=== PATIENT | male | born 1975 | race Caucasian/White ===

== ENCOUNTER 2017-10-10 04:01 | Emergency (ER) | payer SELFPAY ==
[~2017-10-10 04:01] MED LIST: LISI-556 PO; SULF1TAB38 PO
== END 2017-10-10 04:40 | disposition left against medical advice (07) ==
LOC: EDUNIT# 04:01 → ER 04:04
DX: R19.7 Diarrhea, unspecified (principal); E83.42 Hypomagnesemia; N39.9 Disorder of urinary system, unspecified

== ENCOUNTER 2019-05-24 01:25 | Emergency (ER) | payer SELFPAY ==
[~2019-05-24] VITALS: Ht 172.7 cm; Wt 88.5 kg
[2019-05-24 02:25] VITALS: BP 151/90
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
--- NOTE | 2019-05-24 06:18 | Diagnostic Imaging Report ---
PA and lateral chest at 206 hours. INDICATION: Chest wall pain. There are no prior studies available for comparison. FINDINGS: The heart size is within normal limits. The lungs are clear. There is no evidence for failure, pneumonia or for pleural effusion. The mediastinum is not widened. The osseous structures are intact. The PA view does suggest a mild compression deformity of T9. I suspect this is chronic in nature. IMPRESSION: There is no evidence for an acute cardiopulmonary abnormality. Dictated by: Dictated on workstation # [id number]
[2019-05-25] MEDS ORDERED: CEPH-507 PO (01:47)
== END 2019-05-24 02:27 | disposition home or self-care (01) ==
LOC: EDUNIT# 01:25 → ER 01:28
DX: R07.89 Other chest pain (principal); I10 Essential (primary) hypertension; F41.9 Anxiety disorder, unspecified; F32.9 Major depressive disorder, single episode, unspecified; F17.290 Nicotine dependence, other tobacco product, uncomplicated; Y35.891A Legal intervention involving other specified means, law enforcement official injured, initial encounter
CPT/HCPCS: 71046

== ENCOUNTER 2019-05-24 22:50 | Emergency (ER) | payer SELFPAY ==
[~2019-05-24] VITALS: Ht 172.7 cm; Wt 88.5 kg
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
--- NOTE | 2019-05-24 23:18 | NUR ---
EKG BY ME
[2019-05-24] MEDS ORDERED: KETOROLAC 30 MG/ML VIAL IVP ONE (23:45)
--- NOTE | 2019-05-24 23:52 | NUR ---
LABS AND UA TO LAB BY ME
[2019-05-24 23:58] LABS: BASOPHILS % (AUTO) 0 % (0-10); EOSINOPHILS # (AUTO) 0.1 10^3/uL (0.0-0.3); EOSINOPHILS % (AUTO) 0 % (0-10); HEMATOCRIT 41 % (40-54); HEMOGLOBIN 13.8 G/DL (13.3-17.7); LYMPHOCYTES # (AUTO) 1.9 X 10^3 (1.0-4.0); LYMPHOCYTES % (AUTO) 14 % (12-44); MEAN CORPUSCULAR HEMOGLOBIN 30 PG (25-34); MEAN CORPUSCULAR HGB CONC 34 G/DL (32-36); MEAN CORPUSCULAR VOLUME 90 FL (80-99); MEAN PLATELET VOLUME 9.8 FL (7.4-10.4); MONOCYTES # (AUTO) 1.7 X 10^3 (0.0-1.0); MONOCYTES % (AUTO) 12 % (0-12); NEUTROPHILS # (AUTO) 10.2 X 10^3 (1.8-7.8); NEUTROPHILS % (AUTO) 74 % (42-75); PLATELET COUNT 375 10^3/uL (130-400); RED CELL DISTRIBUTION WIDTH 12.8 % (10.0-14.5); WHITE BLOOD COUNT 13.8 10^3/uL (4.3-11.0)
[2019-05-25 00:05] LABS: BILIRUBIN,URINE NEGATIVE (NEGATIVE); GLUCOSE, URINE (UA) NEGATIVE (NEGATIVE); KETONES,URINE NEGATIVE (NEGATIVE); LEUKOCYTE ESTERASE ,URINE NEGATIVE (NEGATIVE); NITRITE,URINE NEGATIVE (NEGATIVE); PH,URINE 7 (5-9); PROTEIN,URINE NEGATIVE (NEGATIVE); UROBILINOGEN,URINE NORMAL (NORMAL)
[2019-05-25 00:08] LABS: BACTERIA,URINE TRACE /HPF; CLARITY,URINE CLEAR; COLOR,URINE YELLOW; SQUAMOUS EPITHELIAL CELL,UR RARE /HPF
[2019-05-25 00:17] LABS: ALANINE AMINOTRANSFERASE 32 U/L (0-55); ALBUMIN 4.4 GM/DL (3.2-4.5); ALKALINE PHOSPHATASE 69 U/L (40-136); BILIRUBIN,TOTAL 0.7 MG/DL (0.1-1.0); BUN/CREATININE RATIO 13; CALCIUM 9.7 MG/DL (8.5-10.1); CARBON DIOXIDE 24 MMOL/L (21-32); CHLORIDE 98 MMOL/L (98-107); GFR ESTIMATED > 60; GLUCOSE 82 MG/DL (70-105); MAGNESIUM 1.8 MG/DL (1.8-2.4); POTASSIUM 3.8 MMOL/L (3.6-5.0); SODIUM 137 MMOL/L (135-145); TOTAL PROTEIN 7.1 GM/DL (6.4-8.2)
[2019-05-25 00:18] LABS: PROTHROMBIN TIME PATIENT 13.1 SEC (12.2-14.7)
[2019-05-25 00:34] VITALS: BP 146/80
--- NOTE | 2019-05-25 00:35 | NUR ---
PT BACK FROM CT. PT REMAINS HERE BY SELF ALERT GCS 15. CHEST PAIN LESS RATING 3. STILL C/O DYSPNEA AND NO ACUTE SIGHNS OF DYSPNEA NOTED. H/T REMAIN WNL. TELE SHOWS SR 92.
[2019-05-25] MEDS ORDERED: HOLD METFORMIN - RECEIVED CONTRAST 20 ML VIAL IV SCH (00:45)
[2019-05-25] MEDS ORDERED: IOHEXOL 350 MG/ML 150 ML (OMNIPAQUE 350) VIAL IV ONE (00:45)
[2019-05-25] MEDS ORDERED: NS 100 ML (IVPB) BAG IV ONE (00:45)
--- NOTE | 2019-05-25 00:49 | NUR ---
SAID BLOOD CXS AND ZOSYN. NOT ORDERED YET. I SENT BLOOD CXS TO LAB.
--- NOTE | 2019-05-25 00:52 | NUR ---
I CALLED LAB FOR 2ND BLOOD CXS.
[2019-05-25] MEDS ORDERED: NS IV 1000 ML 1,000 ML IV ONE (00:59)
[2019-05-25] MEDS ORDERED: ACETAMINOPHEN 500 MG TAB (TYLENOL) PO ONE (01:00)
--- NOTE | 2019-05-25 01:02 | NUR ---
REPORT TO GABO REYNA. HE KNOWS DR ORDERING BLOOD CXS, ZOSYN, AND TYLENOL.
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
[2019-05-25] MEDS ORDERED: CEPH-507 PO (01:47)
[2019-05-25 02:11] VITALS: BP 136/81
--- NOTE | 2019-05-25 06:56 | Diagnostic Imaging Report ---
PROCEDURE: CT angiography of the chest with contrast. TECHNIQUE: Multiple contiguous axial images were obtained through the chest after uneventful bolus administration of intravenous contrast. 2D reconstructed CTA MIP acquisitions were also performed. Auto Exposure Controls were utilized during the CT exam to meet ALARA standards for radiation dose reduction. INDICATION: Chest pain, fever and difficulty breathing. FINDINGS: There are no primary nodules, masses, or infiltrates. There is no pleural or pericardial fluid. There is no pneumothorax. There is no pathologically enlarged adenopathy in the chest. The thoracic aorta is normal in caliber and without evidence of dissection. There are no filling defects seen within the pulmonary arteries to suggest a pulmonary embolism. The visualized intraabdominal structures are unremarkable. The osseous structures are unremarkable. IMPRESSION: No acute abnormality in the chest. Specifically, there is no evidence of a pulmonary embolism or aortic dissection. Dictated by: Dictated on workstation # [id number]
== END 2019-05-25 02:11 | disposition home or self-care (01) ==
LOC: EDUNIT# 22:50 → ER 22:52
DX: R07.89 Other chest pain (principal); R50.9 Fever, unspecified; I10 Essential (primary) hypertension; F41.9 Anxiety disorder, unspecified; F32.9 Major depressive disorder, single episode, unspecified; Z77.22 Contact with and (suspected) exposure to environmental tobacco smoke (acute) (chronic)
CPT/HCPCS: 36415; 71275; 80053; 81000; 83605; 83735; 83874; 84484; 85025; 85610; 85730; 86141; 87040; 87077; 87186; 93005; 93041; 96374

== ENCOUNTER 2019-05-26 10:44 | Inpatient (IN) | payer OTHER ==
[~2019-05-26] VITALS: Ht 170.2 cm; Wt 87.3 kg
[~2019-05-26 10:44] MED LIST changes: +CEPH-507 PO
--- NOTE | 2019-05-26 10:55 | ED Chest Pain ---
General Stated Complaint: CHEST PAIN Source: patient Exam Limitations: no limitations History of Present Illness Date Seen by Provider: May 26, 2019 Time Seen by Provider: 10:50 Initial Comments To ER per EMS with reports of chest pain and upper back pain. This is worse with movement and deep breathing. It began on of last week when he was tased. [place] [employer] arrived to his house today to pick him up and taken to penitentiary on a notable on warrant when he started complaining of chest pain again. EMS reports she was able to walk to their cot, upon EMS arrival he is unable to transfer from the cot to the bed due to the severe chest pain. He's been seen here twice in the past 2 days for same complaint with a negative CT angio chest and negative troponin Timing/Duration: 3-4 days Severity/Quality: sharp Location: central, back Activities at Onset: none ASA po TRAINING AND DEVELOPMENT PROFESSIONAL: No NTG SL TRAINING AND DEVELOPMENT PROFESSIONAL: No Allergies and Home Medications Allergies Coded Allergies: No Known Drug Allergies (Unverified , 04/29/10) Home Medications Cephalexin 500 Mg Capsule, 500 MG PO QID Prescribed by: NAOMI MONTAGUE on 05/25/19 0147 Patient Home Medication List Home Medication List Reviewed: Yes Review of Systems Review of Systems Constitutional: see HPI EENTM: No Symptoms Reported Respiratory: No Symptoms Reported Cardiovascular: See HPI, Chest Pain Gastrointestinal: No Symptoms Reported Genitourinary: No Symptoms Reported Musculoskeletal: see HPI, back pain Skin: no symptoms reported Psychiatric/Neurological: No Symptoms Reported Endocrine: No Symptoms Reported Past Junkmmu-Tyjurt-Bkxlym Hx Patient Social History Type Used: Electronic/Vapor 2nd Hand Smoke Exposure: Yes Recent Hopitalizations: No Immunizations Up To Date Tetanus Booster (TDap): Unknown Seasonal Allergies Seasonal Allergies: No Past Medical History Surgeries: No Respiratory: No Cardiac: Yes Hypertension Neurological: No Genitourinary: No Gastrointestinal: No Musculoskeletal: No Endocrine: No HEENT: No Cancer: No Psychosocial: Yes Anxiety, Depression Integumentary: No Blood Disorders: No Physical Exam Vital Signs Vital Signs - First Documented 05/26/19 10:44 Temp 99.9 Pulse 68 Resp 18 B/P (MAP) 146/81 (102) Pulse Ox 98 O2 Delivery Room Air Capillary Refill : Height, Weight, BMI Height: 5'8.00" Weight: 195lbs. oz. 88.452564zd; 29.75 BMI Method:Stated General Appearance: No Apparent Distress, WD/WN, Other (keeps eyes closed when talking to us) HEENT: PERRL/EOMI, TMs Normal Respiratory: No Accessory Muscle Use, No Respiratory Distress, Other (chest is tender to palpation) Cardiovascular: Regular Rate, Rhythm, Normal Peripheral Pulses Gastrointestinal: Non Tender, Soft Neurologic/Psychiatric: Alert, Oriented x3 Skin: Normal Color, Warm/Dry Other comments EKG shows normal sinus rhythm without ST segment changes to suggest ischemia or pericarditis Focused Exam Lactate Level 05/26/19 11:31: Lactic Acid Level 0.78 Lactic Acid Level Laboratory Tests Test 05/26/19 11:31 Lactic Acid Level 0.78 MMOL/L (0.50-2.00) Progress/Results/Core Measures Results/Orders Lab Results Laboratory Tests Test 05/26/19 10:52 05/26/19 11:31 Range/Units White Blood Count 16.1 H 4.3-11.0 10^3/uL Red Blood Count 4.41 4.35-5.85 10^6/uL Hemoglobin 13.5 13.3-17.7 G/DL Hematocrit 40 40-54 % Mean Corpuscular Volume 90 80-99 FL Mean Corpuscular Hemoglobin 31 25-34 PG Mean Corpuscular Hemoglobin Concent 34 32-36 G/DL Red Cell Distribution Width 13.0 10.0-14.5 % Platelet Count 323 130-400 10^3/uL Mean Platelet Volume 9.7 7.4-10.4 FL Neutrophils (%) (Auto) 79 H 42-75 % Lymphocytes (%) (Auto) 11 L 12-44 % Monocytes (%) (Auto) 10 0-12 % Eosinophils (%) (Auto) 0 0-10 % Basophils (%) (Auto) 0 0-10 % Neutrophils # (Auto) 12.6 H 1.8-7.8 X 10^3 Lymphocytes # (Auto) 1.8 1.0-4.0 X 10^3 Monocytes # (Auto) 1.6 H 0.0-1.0 X 10^3 Eosinophils # (Auto) 0.0 0.0-0.3 10^3/uL Basophils # (Auto) 0.0 0.0-0.1 10^3/uL Neutrophils % (Manual) 7 % Lymphocytes % (Manual) 15 % Monocytes % (Manual) 9 % Band Neutrophils 5 % Blood Morphology Comment NORMAL Prothrombin Time 14.3 12.2-14.7 SEC INR Comment 1.1 0.8-1.4 Activated Partial Thromboplast Time 28 24-35 SEC D-Dimer 0.47 0.00-0.49 UG/ML Sodium Level 136 135-145 MMOL/L Potassium Level 4.1 3.6-5.0 MMOL/L Chloride Level 103 98-107 MMOL/L Carbon Dioxide Level 25 21-32 MMOL/L Anion Gap 8 5-14 MMOL/L Blood Urea Nitrogen 9 7-18 MG/DL Creatinine 0.85 0.60-1.30 MG/DL Estimat Glomerular Filtration Rate > 60 BUN/Creatinine Ratio 11 Glucose Level 140 H 70-105 MG/DL Calcium Level 9.1 8.5-10.1 MG/DL Corrected Calcium 9.4 8.5-10.1 MG/DL Magnesium Level 1.8 1.8-2.4 MG/DL Total Bilirubin 0.4 0.1-1.0 MG/DL Aspartate Amino Transf (AST/SGOT) 15 5-34 U/L Alanine Aminotransferase (ALT/SGPT) 30 0-55 U/L Alkaline Phosphatase 59 40-136 U/L Myoglobin 22.0 10.0-92.0 NG/ML Troponin I < 0.028 <0.028 NG/ML Total Protein 6.3 L 6.4-8.2 GM/DL Albumin 3.6 3.2-4.5 GM/DL Lactic Acid Level 0.78 0.50-2.00 MMOL/L My Orders Orders - JAVY JIMENEZ APRN Cbc With Automated Diff (05/26/19 10:46) Magnesium (05/26/19 10:46) Chest 1 View, Ap/Pa Only (05/26/19 10:46) Ekg Tracing (05/26/19 10:46) Cardiac Profile 1 (05/26/19 10:46) Comprehensive Metabolic Panel (05/26/19 10:46) Myoglobin Serum (05/26/19 10:46) Protime With Inr (05/26/19 10:46) Partial Thromboplastin Time (05/26/19 10:46) O2 (05/26/19 10:46) Monitor-Rhythm Ecg Trace Only (05/26/19 10:46) Ed Iv/Invasive Line Start (05/26/19 10:46) Fibrin Degradation Products (05/26/19 10:46) Ketorolac Injection (Toradol Injection) (05/26/19 11:00) Methocarbamol Tablet (Robaxin Tablet) (05/26/19 11:00) Manual Differential (05/26/19 10:52) Blood Culture (05/26/19 11:19) Lactic Acid Analyzer (05/26/19 11:19) Piperacillin/Tazobactam (Bulk) (Zosyn In (05/26/19 11:30) Ua Culture If Indicated (05/26/19 11:24) Drug Screen Stat (Urine) (05/26/19 11:43) Medications Given in ED Current Medications Medications Dose Ordered Sig/Shireen Route Start Time Stop Time Status Last Admin Dose Admin Ketorolac Tromethamine 15 mg ONCE ONCE IVP 05/26/19 11:00 05/26/19 11:01 DC 05/26/19 11:13 15 MG Piperacillin Sod/ Tazobactam Sod 4.5 gm/Sodium Chloride 120 ml @ 240 mls/hr ONCE ONCE IV 05/26/19 11:30 05/26/19 11:59 DC 05/26/19 11:48 240 MLS/HR Vital Signs/I&O 05/26/19 10:44 Temp 99.9 Pulse 68 Resp 18 B/P (MAP) 146/81 (102) Pulse Ox 98 O2 Delivery Room Air Progress Progress Note : Progress Note NAME: RUFUS MADRIGAL [facility] REC#: [id number] PT STATUS: REG ER : 1975 PHYSICIAN: JAVY JIMENEZ APRN ADMIT DATE: 05/26/19/ER Draft Date of Exam:05/26/19 CHEST 1 VIEW, AP/PA ONLY Clinical indication: Patient with chest pain. Exam: Portable chest x-ray upright view. Comparisons: Chest x-ray dated 05/24/2019. Findings: There is mild bibasilar atelectasis. There is no interval lung infiltrate. There is no pleural effusion or pneumothorax. Pulmonary vasculature and cardiac silhouette is within normal limits for portable projection. There are mildly hypertrophic spurs involving the thoracic spine. Impression: Mild bibasilar atelectasis. Otherwise, there is no radiographic evidence of acute cardiopulmonary process. Dictated on workstation # [id number] Dict: 05/26/19 1108 Trans: 05/26/19 1116 [facility] [id number] Interpreted by: KENIA QUIROGA MD Electronically signed by: Departure Communication (Admissions) Time/Spoke to Admitting Phy: 11:32 Was formerly a patient of Dr. Ferreira, has not followed there in over 2 years. He'll go to the hospitalist service. Spoke with Dr. Rossi, we will admit on Zosyn During the patient's stay here or the microbiology department haven't called to report that all 4 of his blood cultures from 2 days ago are positive for coag negative staph. The police will keep him in custody during stay. Impression Primary Impression: Coag negative Staphylococcus bacteremia Additional Impression: Chest wall pain Disposition: ADMITTED INPATIENT Condition: Stable Admissions Decision to Admit Reason: Admit from ER (General) Decision to Admit/Date: May 26, 2019 Time/Decision to Admit Time: 11:32 Departure-Patient Inst. Decision time for Depature: 10:54 Referrals: TIFFANY FERREIRA DO (PCP/Family) Primary Care Physician Add. Discharge Instructions: Follow-up with your doctor next week. Return if any concerns JAVY JIMENEZ APRN May 26, 2019 10:54
[2019-05-26 10:58] LABS: BASOPHILS % (AUTO) 0 % (0-10); EOSINOPHILS % (AUTO) 0 % (0-10); HEMATOCRIT 40 % (40-54); HEMOGLOBIN 13.5 G/DL (13.3-17.7); LYMPHOCYTES # (AUTO) 1.8 X 10^3 (1.0-4.0); LYMPHOCYTES % (AUTO) 11 % (12-44); MEAN CORPUSCULAR HEMOGLOBIN 31 PG (25-34); MEAN CORPUSCULAR HGB CONC 34 G/DL (32-36); MEAN CORPUSCULAR VOLUME 90 FL (80-99); MEAN PLATELET VOLUME 9.7 FL (7.4-10.4); MONOCYTES # (AUTO) 1.6 X 10^3 (0.0-1.0); MONOCYTES % (AUTO) 10 % (0-12); NEUTROPHILS # (AUTO) 12.6 X 10^3 (1.8-7.8); NEUTROPHILS % (AUTO) 79 % (42-75); PLATELET COUNT 323 10^3/uL (130-400); WHITE BLOOD COUNT 16.1 10^3/uL (4.3-11.0)
[2019-05-26] MEDS ORDERED: METHOCARBAMOL 750 MG (ROBAXIN) TAB PO ONE (11:00)
[2019-05-26] MEDS ORDERED: KETOROLAC 30 MG/ML VIAL IVP ONE (11:00)
[2019-05-26 11:08] LABS: INR 1.1 (0.8-1.4); PROTHROMBIN TIME PATIENT 14.3 SEC (12.2-14.7)
--- NOTE | 2019-05-26 11:16 | Diagnostic Imaging Report ---
Clinical indication: Patient with chest pain. Exam: Portable chest x-ray upright view. Comparisons: Chest x-ray dated 05/24/2019. Findings: There is mild bibasilar atelectasis. There is no interval lung infiltrate. There is no pleural effusion or pneumothorax. Pulmonary vasculature and cardiac silhouette is within normal limits for portable projection. There are mildly hypertrophic spurs involving the thoracic spine. Impression: Mild bibasilar atelectasis. Otherwise, there is no radiographic evidence of acute cardiopulmonary process. Dictated by: Dictated on workstation # [id number]
[2019-05-26 11:17] LABS: ALANINE AMINOTRANSFERASE 30 U/L (0-55); ALBUMIN 3.6 GM/DL (3.2-4.5); ALKALINE PHOSPHATASE 59 U/L (40-136); BILIRUBIN,TOTAL 0.4 MG/DL (0.1-1.0); BUN/CREATININE RATIO 11; CALCIUM 9.1 MG/DL (8.5-10.1); CARBON DIOXIDE 25 MMOL/L (21-32); CHLORIDE 103 MMOL/L (98-107); CREATININE SERUM 0.85 MG/DL (0.60-1.30); GFR ESTIMATED > 60; GLUCOSE 140 MG/DL (70-105); MAGNESIUM 1.8 MG/DL (1.8-2.4); POTASSIUM 4.1 MMOL/L (3.6-5.0); SODIUM 136 MMOL/L (135-145); TOTAL PROTEIN 6.3 GM/DL (6.4-8.2)
[2019-05-26] MEDS ORDERED: PIPERACILLIN/TAZOBACTAM (BULK) 4.5 GM in NS (IVPB) 100 ML IV ONE (11:30)
--- NOTE | 2019-05-26 11:31 | NUR ---
BLOOD CULTURE AND LATIC ACID DRAWN. LAB HERE TO DRAW 2ND SET OF CULTURE.
[2019-05-26 11:32] LABS: BAND NEUTROPHILS 5 %; LYMPHOCYTES % (MANUAL) 15 %; MONOCYTES % (MANUAL) 9 %; NEUTROPHILS % (MANUAL) 7 %
[2019-05-26 11:33] LABS: RBC MORPH NORMAL
--- NOTE | 2019-05-26 11:57 | NUR ---
REPORT GIVEN ROOM BEING CLEANED WILL CALL WHEN READY.
--- NOTE | 2019-05-26 12:30 | NUR ---
RUFUS MADRIGAL admitted to room 430-1, with an admitting diagnosis of sepsis and bacteremia, on 05/26/19 from ER via , accompanied by .RUFUS MADRIGAL introduced to surroundings, call light, bed controls, phone, TV, temperature control, lights, meal times, smoking policy, visitor policy, side rail policy, bathrooms and showers. Patient Rights given to patient in the handbook. RUFUS MADRIGAL verbalizes understanding that [facility] is not responsible for the loss or damage to any personal effects or valuables that are kept in the patients posession during their hospitalization. RUFUS MADRIGAL verbalizes understanding of Interdisciplinary Patient Education. Patient and/or family were informed about the Rapid Response Team and its purpose.
--- NOTE | 2019-05-26 12:40 | NUR ---
TO ROOM ACCOMPIED PER W/C ACCOMPIED BY PPD.
[2019-05-26 12:56] VITALS: BP 122/64
[2019-05-26 12:57] VITALS: BP 122/64
[2019-05-26] MEDS: ACETAMINOPHEN 325 MG TABLET PO PRN ×2 (13:13→23:23)
[2019-05-26] MEDS: LACTATED RINGERS 1,000 ML IV SCH ×3 (13:32→23:16)
--- NOTE | 2019-05-26 14:14 | NUR ---
Rechecked patient temperature at this time. 97.9
--- NOTE | 2019-05-26 14:30 | NUR ---
Patient in police custody while admitted to room 430. Right foot handcuffed to base of bed. Released at this time to ambulate to bathroom. Provided 200cc urine specimen. Ambulated back to bed and handcuff placed on left foot at this time.
[2019-05-26 15:23] LABS: BILIRUBIN,URINE NEGATIVE (NEGATIVE); CLARITY,URINE CLEAR; COLOR,URINE YELLOW; GLUCOSE, URINE (UA) NEGATIVE (NEGATIVE); KETONES,URINE NEGATIVE (NEGATIVE); LEUKOCYTE ESTERASE ,URINE NEGATIVE (NEGATIVE); NITRITE,URINE NEGATIVE (NEGATIVE); PH,URINE 6 (5-9); PROTEIN,URINE 1+ (NEGATIVE); UROBILINOGEN,URINE NORMAL (NORMAL)
--- NOTE | 2019-05-26 15:23 | NUR ---
Fr. Prashant Duncan arrived to visit the pt per request of pt's family. Fr. Cerda said the family told him about the pt's confidential status, and that the pt was in police custody. He requested this industrial trainer accompany him to the room due to pt's confidential status, and because the real estate asset manager was not in clerical attire and thus unrecognizable as a real estate asset manager by those unfamiliar with him. I accompanied Fr. Cerda to the pt's room where pt was resting with eyes closed. I introduced the real estate asset manager to the guard and asked if Fr. Cerda could visit the pt. He gave pass. The pt opened his eyes and became alert when the real estate asset manager touched his shoulder and spoke to him. This industrial trainer met with the nurse Felisha, requesting that she follow up with the real estate asset manager regarding the specific HIPPA regulations for confidential patients in the event that the family requests information from him.
[2019-05-26 15:36] LABS: BACTERIA,URINE TRACE /HPF
[2019-05-26 15:43] LABS: BARBITURATE SCREEN URINE NEGATIVE (NEGATIVE); OPIATE SCREEN URINE POSITIVE (NEGATIVE)
[2019-05-26 15:44] LABS: AMPHETAMINE SCREEN, URINE NEGATIVE (NEGATIVE); BENZODIAZEPINES SCREEN URINE NEGATIVE (NEGATIVE); CANNABINOID SCREEN, URINE NEGATIVE (NEGATIVE); COCAINE SCREEN URINE NEGATIVE (NEGATIVE); METHADONE STAT NEGATIVE (NEGATIVE); METHAMPHETAMINE SCREEN URINE S NEGATIVE (NEGATIVE); OXYCODONE STAT NEGATIVE (NEGATIVE); PROPOXYPHENE STAT NEGATIVE (NEGATIVE); TRICYCLIC ANTIDEPRESSANTS SCRE NEGATIVE (NEGATIVE)
[2019-05-26 16:00] VITALS: BP 129/74
[2019-05-26] MEDS: PIPERACILLIN/TAZO 4.5 GM/NS 100 ML IV SCH ×2 (17:21)
--- NOTE | 2019-05-26 17:46 | NUR ---
Patient in police custody while admitted to room 430. Left foot handcuffed to base of bed. Released at this time to ambulate to bathroom. Patient voided x1. Ambulated back to bed and handcuff placed on right foot at this time.
--- NOTE | 2019-05-26 18:35 | NUR ---
Offered patient the opportunity to get up and go to the bathroom or ambulate in room. Patient refused. Cuffs moved from right ankle to left ankle.
[2019-05-26 20:15] VITALS: BP 132/76
[2019-05-26 23:49] VITALS: BP 145/77
[2019-05-27] MEDS: PIPERACILLIN/TAZO 4.5 GM/NS 100 ML IV SCH ×6 (02:15→18:17)
[2019-05-27 03:44] VITALS: BP 133/77
[2019-05-27 05:47] LABS: BASOPHILS % (AUTO) 0 % (0-10); EOSINOPHILS # (AUTO) 0.1 10^3/uL (0.0-0.3); EOSINOPHILS % (AUTO) 1 % (0-10); HEMATOCRIT 39 % (40-54); HEMOGLOBIN 12.6 G/DL (13.3-17.7); LYMPHOCYTES # (AUTO) 1.6 X 10^3 (1.0-4.0); LYMPHOCYTES % (AUTO) 16 % (12-44); MEAN CORPUSCULAR HEMOGLOBIN 30 PG (25-34); MEAN CORPUSCULAR HGB CONC 33 G/DL (32-36); MEAN CORPUSCULAR VOLUME 91 FL (80-99); MEAN PLATELET VOLUME 9.8 FL (7.4-10.4); MONOCYTES # (AUTO) 1.4 X 10^3 (0.0-1.0); MONOCYTES % (AUTO) 13 % (0-12); NEUTROPHILS # (AUTO) 7.3 X 10^3 (1.8-7.8); NEUTROPHILS % (AUTO) 70 % (42-75); PLATELET COUNT 340 10^3/uL (130-400); WHITE BLOOD COUNT 10.5 10^3/uL (4.3-11.0)
[2019-05-27 06:03] LABS: ALANINE AMINOTRANSFERASE 26 U/L (0-55); ALBUMIN 3.2 GM/DL (3.2-4.5); ALKALINE PHOSPHATASE 57 U/L (40-136); BILIRUBIN,TOTAL 0.3 MG/DL (0.1-1.0); BUN/CREATININE RATIO 13; CALCIUM 9.1 MG/DL (8.5-10.1); CARBON DIOXIDE 25 MMOL/L (21-32); CHLORIDE 105 MMOL/L (98-107); CREATININE SERUM 1.01 MG/DL (0.60-1.30); GFR ESTIMATED > 60; GLUCOSE 135 MG/DL (70-105); SODIUM 141 MMOL/L (135-145); TOTAL PROTEIN 5.8 GM/DL (6.4-8.2)
[2019-05-27 08:00] VITALS: BP 137/74
[2019-05-27] MEDS ORDERED: VANCOMYCIN 2000 MG/NS 500 ML IVPB IV NR ×2 (09:00)
[2019-05-27] MEDS: LACTATED RINGERS 1,000 ML IV SCH ×3 (09:38→22:04)
--- NOTE | 2019-05-27 11:42 | History & Physical-Hospitalist ---
History of Present Illness HPI/Chief Complaint The patient is a 44-year-old white male who was admitted after he was brought there yesterday by the police. They had served him with an arrest warrant and he replied that he was ill and needed to go to the emergency room. This represented a third visit in 48 hours. On visit number 2 he had a low-grade fever and a modest elevation in white blood count at 13,800. He had been empirically given 1 dose of Zosyn IV and started on Keflex. On arrival he was found to have a temperature of 101 and a white count increased at 16,100. The blood culture that had been drawn the day prior was growing staph on 4 platelets. Initially I was told that it was quite negative staph however this morning Wanda Villa called and reported that it was indeed coag positive staph he is now afebrile and his white count from yesterday has fallen 16,100- 10,500. He continues to protest great pain. Source: patient Exam Limitations: no limitations Date Seen 05/27/19 Time Seen by a Provider: 11:36 Attending Physician Dalton Jaimes MD PCP Marina Ferreira DO Referring Physician Date of Admission May 26, 2019 at 11:47 am Home Medications & Allergies Home Medications Reviewed patient Home Medication Reconciliation performed by pharmacy medication reconciliations gastroenterology technician and/or nursing. Patients Allergies have been reviewed. Allergies Allergies Coded Allergies No Known Drug Allergies (Unverified04/29/10) Past Dtwxqlh-Qytvjc-Klntgk Hx Past Med/Social Hx: Reviewed Nursing Past Med/Soc Hx Patient Social History Alcohol Use: Denies Use Recreational Drug Use: No Smoking Status: Former Smoker Type Used: Electronic/Vapor 2nd Hand Smoke Exposure: Yes Recent Foreign Travel: No Contact w/other who traveled: No Recent Hopitalizations: No Recent Infectious Disease Expo: No Immunizations Up To Date Tetanus Booster (TDap): Unknown Seasonal Allergies Seasonal Allergies: No Past Medical History Cardiac: Hypertension Psychosocial: Anxiety, Depression History of Blood Disorders: No Family History Alcoholism Grandfather Cardiovascular disease 19 MOTHER Myocardial infarction 19 MOTHER Review of Systems Constitutional: see HPI Respiratory: no symptoms reported Cardiovascular: no symptoms reported Gastrointestinal: no symptoms reported Genitourinary: no symptoms reported Musculoskeletal: back pain Psychiatric/Neurological: No Symptoms Reported Physical Exam Physical Exam Vital Signs Vital Signs - First Documented 05/26/19 10:44 Temp 99.9 Pulse 68 Resp 18 B/P (MAP) 146/81 (102) Pulse Ox 98 O2 Delivery Room Air Capillary Refill : Less Than 3 SecondsLess Than 3 Seconds Height, Weight, BMI Height: 5'7.00" Weight: 192lbs. 9.0oz. 87.221876by; 30.2 BMI Method:Stated General Appearance: Mild Distress, Moderate Distress, Other (many complaints of pain with minimum movement.) HEENT: Normal ENT Inspection Neck: Full Range of Motion Respiratory: Chest Non Tender, Lungs Clear, Normal Breath Sounds, No Accessory Muscle Use, No Respiratory Distress Cardiovascular: Regular Rate, Rhythm, No Edema, No Gallop, No JVD, No Murmur, Normal Peripheral Pulses Gastrointestinal: Normal Bowel Sounds Neurologic/Psychiatric: Alert, Oriented x3 Comments There is a curious narrow triangular and deep defect about 8 mm in length over the mid dorsal aspect of the right foot. There is a more shallow abrasion type wound on the dorsum of the left foot. Both of these show no evidence of erythema or pus and appeared to be several days old Results Results/Procedures Labs Laboratory Tests 05/26/19 10:52 05/27/19 05:30 Patient resulted labs reviewed. Assessment/Plan Admission Diagnosis Bacteremia with Staphylococcus aureus Admission Status: Observation Clinical Quality Measures AMI/AHF: ASA po Prior to arrival: No DVT/VTE Risk/Contraindication: Risk Factor Score Per Nursin RFS Level Per Nursing on Admit: 4+=Very High DALTON JAIMES MD May 27, 2019 11:42 am
[2019-05-27 12:00] VITALS: BP 147/80
[2019-05-27 16:20] VITALS: BP 143/83
[2019-05-27 19:45] VITALS: BP 145/79
[2019-05-27] MEDS ORDERED: VANCOMYCIN 1500 MG/NS 500 ML IVPB IV SCH ×2 (21:00)
[2019-05-27] MEDS: IBUPROFEN 600 MG (MOTRIN) TAB PO PRN (22:15)
[2019-05-28] VITALS: BP 128/78
[2019-05-28] MEDS: PIPERACILLIN/TAZO 4.5 GM/NS 100 ML IV SCH ×4 (02:10→10:11)
[2019-05-28 04:00] VITALS: BP 135/79
[2019-05-28] MEDS: LACTATED RINGERS 1,000 ML IV SCH ×2 (05:02→10:11)
--- NOTE | 2019-05-28 06:25 | NUR ---
pt has rested well this shift.. no distress noted occasional c/o chest wall pain. iv site was chnaged to right ac 22g.. hr per tele has decreased at times to 40-50 with no s/s.. police at bedside and handcuff released every 2 hours and prn. Addendum: 05/28/19 at 0635 by ONEYDA LIRIANO RN this has been reported to dr ordoñez
[2019-05-28 08:00] VITALS: BP 147/92
[2019-05-28] MEDS: IBUPROFEN 600 MG (MOTRIN) TAB PO PRN (08:28)
[2019-05-28] MEDS ORDERED: AMOX-358 PO (10:13)
--- NOTE | 2019-05-28 10:14 | Discharge Summary ---
Diagnosis/Chief Complaint Date of Admission May 26, 2019 at 11:47 Date of Discharge Discharge Date: May 28, 2019 Admission Diagnosis Bacteremia with Staphylococcus aureus Discharge Diagnosis (1) MSSA bacteremia Status: Acute (2) Febrile illness Status: Acute Discharge Summary Discharge Physical Exam Allergies: Coded Allergies: No Known Drug Allergies (Unverified , 04/29/10) Vitals & I&Os Vital Signs Date Time Temp Pulse Resp B/P (MAP) Pulse Ox O2 Delivery O2 Flow Rate FiO2 05/28/19 08:00 97.8 72 18 147/92 (110) 94 Room Air General Appearance: No Apparent Distress, WD/WN Hospital Course Was the Problem List Reviewed?: Yes Pt had a brief hospital course, he was admitted after he was placed under arrest and began feeling feverish, was found to have abnormal labs, blood cultures obtained in the ER from prior day revealed Staph Bacteremia. Pt was placed on broad-spectrum antibiotics, Staph Aureus was assessed to be Methicillin sensitive and was able to be discharged on Augmentin, discontinue the Keflex he had been placed on and was still under arrest and went to intermediate at discharge. Pt considered high risk to women in general, and this examiner had previsouly treated the Pt several years ago when he was and had two children before these behaviors started with stalking women and I was unable to assess the Pt p ersonally because of high-risk of stalking and harm to this examiner. Labs (last 24 hrs) Microbiology 05/26/19 Blood Culture - Preliminary, Resulted No growth 05/26/19 Urine Culture - Final, Complete NO GROWTH Patient resulted labs reviewed. Discussion & Recommendations Discharge Planning: <30 minutes discharge planning Discharge Home Medications: Active Scripts Active Augmentin 875-125 Tablet (Amoxicillin/Potassium Clav) 1 Each Tablet 1 Each PO BID Instructions to patient/family Please see electronic discharge instructions given to patient. Clinical Quality Measures AMI/AHF: ASA po Prior to arrival: No DVT/VTE Risk/Contraindication: Risk Factor Score Per Nursin RFS Level Per Nursing on Admit: 4+=Very High DYLAN LAYTON DO May 28, 2019 10:14
--- NOTE | 2019-06-02 07:45 | Physician Query Clarification ---
PQ-Intro New Diagnosis Admission/Discharge Admission Date: May 26, 2019 at 11:47 Discharge Date: May 28, 2019 at 13:16 The medical record reflects the following clinical scenario: History/Risk Factors: HTN, Clinical Findings: chest pain, WBC 16.1, Lactic 0.78, T 99.9>101, P 68>89, R 18>20, Blood culture MSSA Treatment: IV Pipercillin Question: What condition best reflects the above clinical scenario? Please document a response in the Progress Noter or Discharge Summary. 1. MSSA bacteremia meaning MSSA Sepsis 2. MSSA bacteremia only not further specified 3. Other, with explanation of the clinical findings. 4. Clinically undetermined, no explanation for the clinical findings. PHYSICIAN RESPONSE What condition reflects above: 1 Please remember a lack of response to the above will prompt a phone page by CDI/Coding staff. In responding to this query, please exercise your independent professional judgment. The purpose of this communication is to more accurately reflect the complexity of your patients condition. The fact that a question is asked does not imply that any particular answer is desired or expected. Thank you for your timely response to this clarification. Requestors name: Payam THIS PHYSICIAN QUERY FORM IS A PERMANENT PART OF THE MEDICAL RECORD PAYAM DODD Jun 02, 2019 07:45 DYLAN LAYTON DO Jun 02, 2019 09:42
== END 2019-05-28 13:16 | DRG 872 ==
LOC: EDUNIT# 10:44 → ER 10:45 → 4TH 11:47
PROVIDERS: ADMIT Internal Medicine; ATTEND Internal Medicine
DX: A41.01 Sepsis due to Methicillin susceptible Staphylococcus aureus (principal); R07.89 Other chest pain; I10 Essential (primary) hypertension; F41.9 Anxiety disorder, unspecified; F32.9 Major depressive disorder, single episode, unspecified; Z77.29 Contact with and (suspected) exposure to other hazardous substances; Z87.891 Personal history of nicotine dependence
CPT/HCPCS: 36415; 71045; 80053; 80306; 81000; 83605; 83735; 83874; 84484; 85007; 85025; 85027; 85379; 85610; 85730; 87040; 87088; 93005; 93041; 96365; 96375